=== PATIENT | female | born 1985 | race African-American/Black ===

== ENCOUNTER 2017-11-14 11:44 | Emergency (ER) | payer MEDICAID ==
[2017-11-14 12:13] VITALS: BP 148/81; PULSE 85; RESP 16; TEMP 98.1; O2SAT 98
--- NOTE | 2017-11-14 14:12 | PD ---
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 Patient said that the bleeding continues much longer than her usual. Usually after the menstruation she does not bleed till the next menstrual cycle. However for past few months she starts bleeding after a few days of stopping her menstruation. This time it has been for past 2 days. This time it is mostly when she wipes herself she sees a lot of blood on the toilet paper. She had taken a picture of it to show me. It is bright red without any clots on the toilet paper. She does not have to wear pads. She has not been feeling dizzy or lightheaded. Vital signs were stable. She has seen a SOFTWARE PUBLISHER physician for this. Her SOFTWARE PUBLISHER has told her repeatedly that she should be on control pills but she has not given her a prescription for it. Patient had an ultrasound done about 3-4 months ago which showed a fibroid but she was told by her SOFTWARE PUBLISHER that the fibroid was not big enough. Patient looks pretty frustrated at this point. [facility] Past Medical History Narrative Medical List of her past medical, surgical, social and family history is reviewed from the nursing note. Reproductive: Yes (uterine fibroids) Influenza Vaccination: No ?: Not Past Surgical History Surgical History: No Previous Surgery Social History Alcohol Use: No Tobacco Use: No Substance Use: No Allergies-Medications (Allergen,Severity, Reaction): Coded Allergies: No Known Allergies (Unverified , 11/14/17) Comments No known drug allergies. Reported Meds & Prescriptions Reported Meds & Active Scripts Active Ortho Tri-Cyclen (Norgestimate-Ethinyl Estradiol) 0.18/0.215/0.25 mg-35 Mcg Tab 1 Tab PO DAILY Narrative Medication List of her home medications reviewed from the nursing note Review of Systems Except as stated in HPI: all other systems reviewed are Neg Genitourinary: Positive: Metorrhagia Physical Exam Narrative GENERAL: Awake, alert, no obvious distress SKIN: Focused skin assessment warm/dry. HEAD: Atraumatic. Normocephalic. EYES: Pupils equal and round. No scleral icterus. No injection or drainage. ENT: No nasal bleeding or discharge. Mucous membranes pink and moist. NECK: Trachea midline. No JVD. CARDIOVASCULAR: Regular rate and rhythm. No murmur appreciated. RESPIRATORY: No accessory muscle use. Clear to auscultation. Breath sounds equal bilaterally. GASTROINTESTINAL: Abdomen soft, non-tender, nondistended. Hepatic and splenic margins not palpable. MUSCULOSKELETAL: No obvious deformities. No clubbing. No cyanosis. No edema. NEUROLOGICAL: Awake and alert. No obvious cranial nerve deficits. Motor grossly within normal limits. Normal speech. PSYCHIATRIC: Appropriate mood and affect; insight and judgment normal. Data Data Last Documented VS Orders Orders Ed Urine Pregnancytest Poc (11/14/17 12:16) Ed Discharge Order (11/14/17 14:16) [facility] Medical Decision Making Medical Screen Exam Complete: Yes Emergency Medical Condition: Yes Medical Record Reviewed: Yes Differential Diagnosis Dysfunctional uterine bleeding Narrative Course 2:23 PM bedside urine was negative. Given the fact that patient does not seem clinically to be bleeding too much and vital signs being stable and her being asymptomatic I am comfortable discharging her home with a prescription for control pills. She is not a smoker and should do well with it. I have asked her to follow-up with her SOFTWARE PUBLISHER if symptoms do not improve. Patient understands. She will be discharged home. Procedures EKG Prior to Arrival: No Diagnosis Primary Impression: Dysfunctional uterine bleeding Additional Instructions: Please return to the ER if condition worsens or any other new concerns. Otherwise take the medication as per the prescription direction. Return to see your SOFTWARE PUBLISHER especially if the bleeding does not stop. At which point the SOFTWARE PUBLISHER will have to do further interventions. Drink lots of fluid. Med/Other Pt SpecificInfo: Prescription(s) given Scripts Norgestimate-Ethinyl Estradiol (Ortho Tri-Cyclen) 0.18/0.215/0.25 mg-35 Mcg Tab 1 TAB PO DAILY for Control, #1 PACK 0 Refills Prov: Shiraz Delgado MD 11/14/17 Disposition: 01 DISCHARGE HOME Condition: Stable Shiraz Delgado MD Nov 14, 2017 14:12
[2017-11-14] MEDS ORDERED: ORTHTAB4 PO (14:18)
== END 2017-11-14 14:53 | disposition home or self-care (01) ==
LOC: NEPD 11:44
DX: N93.8 Other specified abnormal uterine and vaginal bleeding (principal); D25.9 Leiomyoma of uterus, unspecified
CPT/HCPCS: 84703; 99283